=== PATIENT | female | born 1985 | race Caucasian/White ===

== ENCOUNTER 2017-11-13 12:45 | Emergency (ER) | payer OTHER ==
[2017-11-13] MEDS ORDERED: MORPHINE SULFATE INJ 4 MG ONE (12:56)
[2017-11-13] MEDS ORDERED: NS 1000 ML 1,000 ML ONE (12:56)
[2017-11-13] MEDS ORDERED: ZOFRAN INJ 4 MG VIAL ONE (12:56)
[2017-11-13 13:03] VITALS: BP 137/73; BMI 19.5
[2017-11-13] MEDS ORDERED: MORPHINE SULFATE INJ 4 MG IVP ONE (13:03)
[2017-11-13] MEDS ORDERED: NS 1000 ML 1,000 ML IV ONE (13:03)
[2017-11-13] MEDS ORDERED: ZOFRAN INJ 4 MG VIAL IVP ONE (13:03)
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
[2017-11-13] MEDS ORDERED: ADACEL TDaP IM ONE ×2 (13:34→13:35)
[2017-11-13] MEDS ORDERED: BACITRACIN ZINC ONE (13:36)
[2017-11-13] MEDS ORDERED: LR 1000 ML IV 1,000 ML IV ONE ×4 (13:45→14:26)
[2017-11-13] MEDS ORDERED: DILAUDID INJ IVP ONE (14:14)
[2017-11-13] MEDS ORDERED: DILAUDID INJ ONE (14:17)
== END 2017-11-13 14:33 | disposition short-term general hospital (02) ==
LOC: ER 12:56
DX: T20.10XA Burn of first degree of head, face, and neck, unspecified site, initial encounter (principal); T23.102A Burn of first degree of left hand, unspecified site, initial encounter; T24.111A Burn of first degree of right thigh, initial encounter; T20.20XA Burn of second degree of head, face, and neck, unspecified site, initial encounter; T23.201A Burn of second degree of right hand, unspecified site, initial encounter; T24.212A Burn of second degree of left thigh, initial encounter; X08.8XXA Exposure to other specified smoke, fire and flames, initial encounter; Y92.9 Unspecified place or not applicable
CPT/HCPCS: 90471; 96365; 96367; 96374; 96375; 99282; 99284; 99285; A4222; J1170; J2270; J2405; J7120